=== PATIENT | female | born 1965 | race Caucasian/White ===

== ENCOUNTER 2019-07-17 08:06 | Day surgery (SDC) | payer OTHER ==
--- OUTSIDE RECORDS SUMMARY | 2019-07-17 08:08 | XMS REPORT ---
:1965 Author Organization [facility] Address [address] [place] [address] Care Team Providers Name Role Phone Unavailable Unavailable Unavailable Problems This patient has no known problems. Allergies, Adverse Reactions, Alerts This patient has no known allergies or adverse reactions. Medications This patient has no known medications. Results Test Description Test Time Test Comments Text Results Atomic Results Result Comments [place], MYELOGRAM, 2018-07-10 Reason for FINAL REPORT PATIENT ID: LUMBAR 09:56:00 Exam:->[id number] LUMBAR MYELOGRAM, CT MYELOGRAM OF THE LUMBAR SPINE HISTORY: Degenerative lumbar spinal canal stenosis, low back and right lower extremity pain COMPARISON: Outside MRI of the lumbar spine from 05/10/2018 CONSENT: The risks, benefits, and alternatives related to the procedure were discussed with the patient. The patient expressed understanding and informed written consent was obtained. LUMBAR MYELOGRAM TECHNIQUE: With the patient prone, the L2-L3 level was localized using fluoroscopy. The skin was marked. After the usual sterile preparation and the application of 2 cc of 1% lidocaine local anesthesia buffered with sodium bicarbonate, using a dorsal percutaneous approach a 22-gauge spinal needle was advanced into the thecal sac at L2-L3 using fluoroscopic assistance. Subsequently, 15 cc of Isovue-M 200 was injected and successful intrathecal contrast administration was confirmed with fluoroscopy. With the patient semierect, AP, bilateral shallow and steep oblique, and lateral spot digital images of lumbar spine were obtained. The patient was subsequently sent to CT for the CT myelogram. FLUOROSCOPY TIME: 1.0 minutes FLUOROSCOPIC IMAGES: 10 LUMBAR MYELOGRAM FINDINGS: Mild ventral impression on the thecal sac at L5-S1. Mild L4 spondylolisthesis. Mild to moderate ventral and bilateral dorsolateral impression on the thecal sac at L4-L5. Mild ventral impression on the thecal sac at L3-L4. Please refer to the CT lumbar myelogram report below for further lumbar spine details. CT MYELOGRAM TECHNIQUE: CT of the lumbar spine was performed after the intrathecal administration of [id number]. Axial images were generated as were multiplanar reformatted images in the sagittal and coronal planes. The examination was performed to conform to our departmental dose optimization program which includes automated exposure control, adjustment of the mA and/or kV according to patient size and/or use of iterative reconstruction techniques. FINDINGS: Levels: 5 lumbar vertebral bodies. The conus terminates at L1. T12-L1: Unremarkable. L1-L2: Minimal disc bulge. L2-L3: Mild bulge of the disc in the foraminal and far lateral regions. Minimal foraminal stenosis. L3-L4: Mild disc bulge. Mild facet arthrosis. Mild spinal canal and foraminal stenosis. L4-L5: Mild degenerative L4 spondylolisthesis. Mild disc space narrowing. Mild disc bulge. Severe facet joint arthrosis. Moderate spinal canal and foraminal stenosis. L5-S1: Mild focal left paracentral/subarticular disc protrusion superimposed on a mild disc bulge. The protrusion abuts the ventral aspect of the left S1 nerve root sleeve and likely mildly dorsally displaces it, although the relative slightly dorsal location of the left S1 nerve root sleeve relative to the right S1 nerve root sleeve may be due to anatomic variations in their origins. Mild facet arthrosis. Mild left lateral recess stenosis. Mild right and nlzj-gv-gwtijpnv left stenosis. Bones: No lumbar fracture is visualized. No destructive bone lesion is evident. Retroperitoneum: Mild aortic calcification. DISPOSITION: The patient tolerated the procedure well, without immediate complications. The patient left fluoroscopy and CT in stable condition. IMPRESSION: 1. Moderate spinal canal and foraminal stenosis at L4-L5. 2. Mild left lateral recess stenosis and mild right and dkww-ch-niafilip left foraminal stenosis at L5-S1. Question slight dorsal displacement of the left S1 nerve root sleeve. 3. Mild spinal canal and foraminal stenosis at L3-L4. Signed: Misael Oh MDReport Verified Date/Time: 07/10/2018 09:56:55 Reading Location: [facility] Radiology Reading Room , SPINE, 2018-07-10 FINAL REPORT PATIENT ID: LUMBAR, CONTRAST 09:56:00 [id number] LUMBAR MYELOGRAM, CT MYELOGRAM OF THE LUMBAR SPINE HISTORY: Degenerative lumbar spinal canal stenosis, low back and right lower extremity pain COMPARISON: Outside MRI of the lumbar spine from 05/10/2018 CONSENT: The risks, benefits, and alternatives related to the procedure were discussed with the patient. The patient expressed understanding and informed written consent was obtained. LUMBAR MYELOGRAM TECHNIQUE: With the patient prone, the L2-L3 level was localized using fluoroscopy. The skin was marked. After the usual sterile preparation and the application of 2 cc of 1% lidocaine local anesthesia buffered with sodium bicarbonate, using a dorsal percutaneous approach a 22-gauge spinal needle was advanced into the thecal sac at L2-L3 using fluoroscopic assistance. Subsequently, 15 cc of Isovue-M 200 was injected and successful intrathecal contrast administration was confirmed with fluoroscopy. With the patient semierect, AP, bilateral shallow and steep oblique, and lateral spot digital images of lumbar spine were obtained. The patient was subsequently sent to CT for the CT myelogram. FLUOROSCOPY TIME: 1.0 minutes FLUOROSCOPIC IMAGES: 10 LUMBAR MYELOGRAM FINDINGS: Mild ventral impression on the thecal sac at L5-S1. Mild L4 spondylolisthesis. Mild to moderate ventral and bilateral dorsolateral impression on the thecal sac at L4-L5. Mild ventral impression on the thecal sac at L3-L4. Please refer to the CT lumbar myelogram report below for further lumbar spine details. CT MYELOGRAM TECHNIQUE: CT of the lumbar spine was performed after the intrathecal administration of Osqwoz-J-600. Axial images were generated as were multiplanar reformatted images in the sagittal and coronal planes. The examination was performed to conform to our departmental dose optimization program which includes automated exposure control, adjustment of the mA and/or kV according to patient size and/or use of iterative reconstruction techniques. FINDINGS: Levels: 5 lumbar vertebral bodies. The conus terminates at L1. T12-L1: Unremarkable. L1-L2: Minimal disc bulge. L2-L3: Mild bulge of the disc in the foraminal and far lateral regions. Minimal foraminal stenosis. L3-L4: Mild disc bulge. Mild facet arthrosis. Mild spinal canal and foraminal stenosis. L4-L5: Mild degenerative L4 spondylolisthesis. Mild disc space narrowing. Mild disc bulge. Severe facet joint arthrosis. Moderate spinal canal and foraminal stenosis. L5-S1: Mild focal left paracentral/subarticular disc protrusion superimposed on a mild disc bulge. The protrusion abuts the ventral aspect of the left S1 nerve root sleeve and likely mildly dorsally displaces it, although the relative slightly dorsal location of the left S1 nerve root sleeve relative to the right S1 nerve root sleeve may be due to anatomic variations in their origins. Mild facet arthrosis. Mild left lateral recess stenosis. Mild right and fakq-is-etuwyinu left stenosis. Bones: No lumbar fracture is visualized. No destructive bone lesion is evident. Retroperitoneum: Mild aortic calcification. DISPOSITION: The patient tolerated the procedure well, without immediate complications. The patient left fluoroscopy and CT in stable condition. IMPRESSION: 1. Moderate spinal canal and foraminal stenosis at L4-L5. 2. Mild left lateral recess stenosis and mild right and okio-th-kiquvrxd left foraminal stenosis at L5-S1. Question slight dorsal displacement of the left S1 nerve root sleeve. 3. Mild spinal canal and foraminal stenosis at L3-L4. Signed: Misael Oh MDReport Verified Date/Time: 07/10/2018 09:56:55 Reading Location: [facility] Radiology Reading Room
[2019-07-17] MEDS ORDERED: SCOPOLAMINE HYDROBROMIDE PATCH TD ONE ×2 (08:12→08:45)
[2019-07-17] MEDS ORDERED: Ringers Lactate 1,000 ML IV ONE ×4 (08:12→13:58)
[2019-07-17] MEDS ORDERED: CEFAZOLIN/SWI 1gm 1 GM/10 ML SYR ONE (08:13)
[2019-07-17] MEDS ORDERED: EPINEPHRINE/PF 1 MG/ML AMP ONE (08:28)
[2019-07-17] MEDS ORDERED: GENTAMICIN SULF 80 MG/2ML INJ ONE (08:28)
[2019-07-17] MEDS ORDERED: CEFAZOLIN SODIUM 1 GM/VIAL ONE ×2 (08:28→13:18)
[2019-07-17] MEDS ORDERED: Mastisol Adhesive Liq ONE (08:29)
[2019-07-17] MEDS ORDERED: NA CHLORIDE 0.9% 0 ML ONE (08:29)
[2019-07-17] MEDS ORDERED: BACITRACIN 50000 UNIT VIAL ONE (08:29)
[2019-07-17] MEDS ORDERED: FENTANYL CITR 250 MCG/5 ML ONE (08:33)
[2019-07-17] MEDS ORDERED: LIDOCAINE 2% MPF 5 ML VIAL ONE (08:33)
[2019-07-17] MEDS ORDERED: PROPOFOL 200 MG/20 ML VIAL IV ONE (08:33)
[2019-07-17] MEDS ORDERED: MIDAZOLAM HCL 2 MG/2 ML INJ ONE (08:33)
[2019-07-17] MEDS ORDERED: dexAMETHasone 10 MG/ML VIAL ONE (08:33)
[2019-07-17] MEDS ORDERED: ROCURONIUM 50 MG/5 ML VIAL IV ONE (08:34)
[2019-07-17] MEDS ORDERED: ONDANSETRON 4 MG/2 ML VIAL ONE ×2 (08:34→16:24)
[2019-07-17] MEDS ORDERED: NS 0.9% VIAL 20 ML ONE ×2 (08:48→10:18)
[2019-07-17] MEDS ORDERED: Phenylephrine HCl 10 MG/ML 1 ML VIAL ONE (09:24)
[2019-07-17] MEDS ORDERED: NS 0.9% VIAL 10 ML ONE (09:24)
[2019-07-17] MEDS ORDERED: MORPHINE 10 MG/ML VIAL ONE (10:18)
[2019-07-17] MEDS ORDERED: MEPERIDINE HCL 25 MG/0.5 ML ONE (10:18)
[2019-07-17] MEDS ORDERED: DIPHENHYDRAMINE 50 MG/ML VIAL ONE (10:20)
[2019-07-17] MEDS: HYDROMORPHONE HCL 1 MG/ML INJ ONE ×5 (14:55→15:23)
[2019-07-17] MEDS ORDERED: PROMETHAZINE 25 MG/ML VIAL ONE (15:23)
[2019-07-17 15:32] VITALS: O2SAT 97
[2019-07-17 16:33] VITALS: TEMP 97.7
[2019-07-17 16:47] VITALS: BP 103/48
[2019-07-17] MEDS ORDERED: CODEINE 30MG/APAP 300MG TAB ONE (17:08)
--- NOTE | 2019-07-18 00:40 | OP ---
Surgeon: Evert Hanson MD Adjutant General: Tito. Preoperative Diagnosis: Scar on the abdominal wall and breast descent after breast augmentation and lift. Postoperative Diagnosis: Scar on the abdominal wall and breast descent after breast augmentation and lift. Procedure: Explantation and lift and scar revision of the abdominal wall. Description Of Procedure: After satisfactory induction of general anesthesia, abdomen and breasts we re prepped with DuraPrep and dry sterile drapes applied in the usual manner. A 42 template was used to outline the right and left areolas. Then, the transverse and curvilinear incisions were made. In tervening skin was de-epithelialized with EpiCut and dermabrader, and then the transverse, cephalad, and lateral incisions were made. Dissection was proceeded down to the lesion flap 1.1 cm thick towar ds the sternum, clavicle, anterior axillary line. After this was done, the inferior incision was mad e. The excess tissue was formed in a cone after incision was made at the 12 o'clock position to miguel ve the implant. The implant was 330 Silicone gel prepectoral. The patient had conization performed with 2-0 PDS sutures and the straps were elevated at 12 o'clock, 1:30 and 3 o'clock position. Straps were then woven in and out of the pectoralis major muscle, back to the base of the cone, pectoralis muscle back to the base of the cone, tied themselves with 2-0 PDS. This was done for the 12 o'clock and 130 straps. The 3 o'clock strap was sewn over the sternum with 2-0 Ethibond. Mirror image was d one on the left side. The patient was sat up. Sites for asymmetry were checked. Dog ears were rese cted and then patient brought back supine. A 10 ARAMIS was brought out of the axilla and sewn in place w ith 2-0 silk and wound closed in layers with 3-0 Vicryl subcu, 3-0 PDS running subcuticular tied in t he vertical meridian of each breast. Left side was done in an identical manner. Patient was then sa t up. Site for new nipple-areolar complex was marked out. The tissue was cored out, with a 42 templ ate and then nipples were delivered and sewn with interrupted 4-0 PDS, followed by 4-0 PDS running murray bcuticular. Attention was then turned to the abdomen and everything was prepped, drapes applied in t he usual manner. An ellipse incision was made excising the scar tissue, that was about approximately 20 cm wide, about 4 to 5 cm vertical, dissected down through the fascia. Patient had scarred tissue s from previous and hysterectomy, and then was closed in layers with 3-0 Vicryl subcu, 3-0 PDS running subcuticular tied in the vertical meridian of the abdomen. Dressings consisted of tinctu re of benzoin, Steri-Strips of the abdomen, 4 x 4's and tape. Tincture of benzoin, Steri-Strips of t he breast followed by 5 x 5's, fluffs and Melquiades wrap. The patient tolerated the procedure well and ret urned to recovery room. The 10 ARAMIS drains were sewn in place with 2-0 silk. YULI/HAILEY Voice ID: [id number] Report ID: [id number]
== END 2019-07-17 17:42 | disposition home or self-care (01) ==
LOC: OR 08:06
PROVIDERS: ATTEND Specialist
PROC: 0H0V0ZZ Alteration of Bilateral Breast, Open Approach (ICD-10-PCS; 2019-07-17)
PROC: 0HB7XZZ Excision of Abdomen Skin, External Approach (ICD-10-PCS; 2019-07-17)
PROC: 0HPU0JZ Removal of Synthetic Substitute from Left Breast, Open Approach (ICD-10-PCS; principal; 2019-07-17 09:00)
PROC: 0HPT0JZ Removal of Synthetic Substitute from Right Breast, Open Approach (ICD-10-PCS; 2019-07-17 09:00)
DX: Z45.812 Encounter for adjustment or removal of left breast implant (principal); Z45.811 Encounter for adjustment or removal of right breast implant; N64.81 Ptosis of breast; L90.5 Scar conditions and fibrosis of skin
CPT/HCPCS: 88305; 19328; 19316; 13101; J2704; J2550; J1200; J2370; J1580; J2250; J3010; J1100; J1170 ×2; J0690 ×3; J7120 ×4; J2405 ×2; J0171; J2175; J7030